=== PATIENT | female | born 1975 | race Two or more races ===

== ENCOUNTER 2018-06-03 09:05 | Outpatient (CLI) | payer OTHER | END 2018-06-03 09:34 | disposition home or self-care (01) | LOC: MRI 09:05 | DX: S93.492A Sprain of other ligament of left ankle, initial encounter (principal) | CPT/HCPCS: 73718 ==

== ENCOUNTER 2018-09-09 13:48 | Outpatient (CLI) | payer OTHER | END 2018-09-09 13:53 | disposition home or self-care (01) | LOC: RAD 501 13:48 | DX: S93.492D Sprain of other ligament of left ankle, subsequent encounter (principal); M76.72 Peroneal tendinitis, left leg ==

== ENCOUNTER 2018-09-17 13:23 | Outpatient (CLI) | payer OTHER | END 2018-09-17 14:00 | disposition home or self-care (01) | LOC: NUCLEAR 13:23 | DX: M81.0 Age-related osteoporosis without current pathological fracture (principal) ==

== ENCOUNTER 2018-12-01 07:48 | Day surgery (SDC) | payer OTHER | END 2018-12-01 13:40 | disposition home or self-care (01) | LOC: CIR.AMB 07:48 → SURH 11:03 → EDSTATUS 11:14 → CIR.AMB 11:15 | DX: O02.1 Missed abortion (principal); Z3A.01 Less than 8 weeks gestation of pregnancy ==

== ENCOUNTER 2019-05-03 14:21 | Outpatient (CLI) | payer OTHER | END 2019-05-03 14:23 | disposition home or self-care (01) | LOC: RAD 14:21 | DX: M54.2 Cervicalgia (principal) ==

== ENCOUNTER 2019-05-03 14:36 | Outpatient (CLI) | payer OTHER | END 2019-05-03 14:43 | disposition home or self-care (01) | LOC: MAMO-SONO 14:36 | DX: N64.4 Mastodynia (principal); Z12.31 Encounter for screening mammogram for malignant neoplasm of breast ==

== ENCOUNTER 2019-10-17 11:54 | Outpatient (CLI) | payer OTHER | END 2019-10-17 11:56 | disposition home or self-care (01) | LOC: RAD 11:54 | DX: J11.1 Influenza due to unidentified influenza virus with other respiratory manifestations (principal); R05 Cough ==

== ENCOUNTER 2021-01-03 12:34 | Outpatient (CLI) | payer OTHER ==
[~2021-01-03 12:34] MED LIST: MAXFE PO; PRENATABS RX T1 EACH PO
== END 2021-01-03 12:40 | disposition home or self-care (01) ==
LOC: RAD 12:34
PROVIDERS: ATTEND Orthopaedic Surgery
DX: M25.572 Pain in left ankle and joints of left foot (principal)

== ENCOUNTER → 2021-01-07 | Outpatient (CLI) | payer OTHER | END | disposition home or self-care (01) | LOC: RAD 16:25 | PROVIDERS: ATTEND Orthopaedic Surgery | DX: S92.512A Displaced fracture of proximal phalanx of left lesser toe(s), initial encounter for closed fracture (principal) ==

== ENCOUNTER 2023-02-13 17:36 | Emergency (ER) | payer OTHER ==
[~2023-02-13] VITALS: Ht 165.1 cm; Wt 80.7 kg
[2023-02-13] MEDS ORDERED: HYOSCYAMINE0.125 M2 (17:57)
[2023-02-13] MEDS ORDERED: PEPCID AC20 MG PO (22:05)
[2023-02-13] MEDS ORDERED: ZOFRAN8 MG PO (22:05)
== END 2023-02-13 22:16 | disposition home or self-care (01) ==
LOC: ER 17:36
DX: R10.84 Generalized abdominal pain (principal); R11.10 Vomiting, unspecified